=== PATIENT | female | born 1965 | race American Indian/Alaskan Native ===

== ENCOUNTER 2017-01-30 06:34 | Day surgery (SDC) | payer BC ==
[2017-01-29 08:53] VITALS: BMI 34.4
[2017-01-30 07:03] LABS: ADD MANUAL DIFF? NO
[2017-01-30 07:20] LABS: BASO # 0.01 K/mm3 (0.0-2.0); BASO % 0.1 % (0.0-3.0); EOS # 0.1 (0.0-0.7); EOS % 1.1 % (1.5-5.0); GRAN % 65.9 % (50.0-68.0); HEMATOCRIT 36.7 % (36.0-48.0); LYMPH # 2.2 (1.2-3.4); LYMPH % 28.3 % (22.0-35.0); MEAN CELL VOLUME 89.1 fL (80.0-105.0); MEAN CORPUSCULAR HEMOGLOBIN 29.6 pg (25.0-35.0); MEAN CORPUSCULAR HGB CONC 33.2 g/dl (31.0-37.0); MEAN PLATELET VOLUME 10.9 fl (7.0-11.0); MONO # 0.4 (0.1-0.6); MONO % 4.6 % (1.0-6.0); PLATELET COUNT 237 10^3/uL (120.0-450.0); RED CELL DISTRIBUTION WIDTH 14.5 % (11.5-14.5); WHITE BLOOD COUNT 7.6 10^3/ul (4.5-11.0)
[2017-01-30 07:31] LABS: INR 0.94 (0.93-1.08); PARTIAL THROMBOPLASTIN TIME 25.4 Seconds (23.7-30.8)
[2017-01-30 07:34] LABS: BLOOD UREA NITROGEN 12 mg/dL (7-21); CALCIUM 9.4 mg/dL (8.4-10.5); CARBON DIOXIDE 27 mmol/L (21-33); CHLORIDE 108 mmol/L (98-107); CHOLESTEROL 140 mg/dL (130-200); GFR AFRICAN-AMERICAN > 60; GLUCOSE,RANDOM 85 mg/dL (70-110); POTASSIUM 4.1 mmol/L (3.6-5.0); SODIUM 142 mmol/L (132-148)
[2017-01-30] MEDS ORDERED: Lidocaine 2% Inj (20ml) ONE (08:25)
[2017-01-30] MEDS ORDERED: Iodixanol 320 MG/ML 100 ML BOTTLE IV ONE (08:26)
[2017-01-30] MEDS ORDERED: Iodixanol 320 MG/ML 200 ML BOTTLE IV ONE (08:26)
[2017-01-30] MEDS ORDERED: Midazolam 2 MG/2 ML VIAL ONE ×2 (08:56→09:12)
[2017-01-30] MEDS ORDERED: Sodium Chloride 0.9% 1,000 ML IV SCH (09:45)
[2017-01-30 10:10] VITALS: TEMP 98
[2017-01-30 11:14] VITALS: RESP 18
[2017-01-30 16:13] VITALS: BP 120/72; PULSE 57; O2SAT 99
== END 2017-01-30 16:15 | disposition home or self-care (01) ==
LOC: CATH 06:34
PROVIDERS: ATTEND Internal Medicine Cardiovascular Disease
DX: R94.39 Abnormal result of other cardiovascular function study (principal)
CPT/HCPCS: 36415; 80048; 80061; 85025; 85610; 85730; 86850; 86900; 93458; 99152; C2629; J1644; J2250; J3010; J7030; J7040 ×2

== ENCOUNTER 2017-02-01 16:21 | Observation (INO) | payer BC ==
--- NOTE | 2017-02-01 16:49 | ED PDOC ---
Arrival/HPI - General Historian: Patient - History of Present Illness Time/Duration: > month Symptom Onset: Gradual Symptom Course: Worsening Context: Other (Climbing the stair. ) - General Chief Complaint: Shortness Of Breath Time Seen by Provider: 02/01/17 16:28 - History of Present Illness Narrative History of Present Illness (Text): 02/01/17 16:43 Patient is a 51 y/o with pmh of htn, migraine presenting with worsening SOB. Patient states she has SOB for months now. Patient had cardiac cath on Sunday to abnormal stress test last week, and after the stress test her chronic SOB got worst. Patient states since the cardiac cath she has been sedentary, she 's mostly SOB when she tries to climb up stairs, denies waking up in the middle of the night to catch her breath, denies pillow orthopnea. Patient states she was contacted by Dr Lomeli's nurse today, when she told the nurse she's sob, she was told to come to the ED for check up. Patient denies cp, denies n/v/d, denies fever, chills, dizziness or lightheadedness. (Kaley Rasmussen) Past Medical History - Provider Review Nursing Documentation Reviewed: Yes - Travel History Have you recently traveled outside [place] w/in the past 3 mons?: No - Cardiac Hx Pacemaker: No - Pulmonary Hx Bronchitis: Yes - Neurological Hx Paralysis: No - Hematological/Oncological Hx Blood Transfusions: No Hx Blood Transfusion Reaction: No - Musculoskeletal/Rheumatological Hx Musculoskeletal Disorders: No - Psychiatric Hx Emotional Abuse: No Hx Physical Abuse: No Hx Substance Use: No - Surgical History Hx Cardiac Catheterization: Yes (01/20) - Anesthesia Hx Anesthesia Reactions: Yes (VOMITING) Hx Malignant Hyperthermia: No - Suicidal Assessment Feels Threatened In Home Enviroment: No Family/Social History - Physician Review Nursing Documentation Reviewed: Yes Family/Social History: Hypertension Smoking Status: Never Smoked Hx Alcohol Use: No Hx Substance Use: No Allergies/Home Meds Allergies/Adverse Reactions: Allergies acetaminophen [From Percocet] Allergy (Intermediate, Verified 02/01/17 16:33) ITCHING morphine Allergy (Intermediate, Verified 02/01/17 16:33) ITCHING oxycodone HCl [From Percocet] Allergy (Intermediate, Verified 02/01/17 16:33) ITCHING Home Medications: Home Meds Medication Instructions Recorded Confirmed Atorvastatin [Lipitor] 20 mg PO QAM 10/03/16 02/01/17 Ibuprofen [Motrin Ib] 800 mg PO BID PRN 10/03/16 02/01/17 amLODIPine [Norvasc] 5 mg PO QAM 10/03/16 02/01/17 Aspirin [Adult Low Dose Aspirin EC] 81 mg PO QAM 01/29/17 02/01/17 Clopidogrel [Plavix] 75 mg PO QAM 01/29/17 02/01/17 Metoprolol Succinate 50 mg PO QAM 01/29/17 02/01/17 Review of Systems - Review of Systems Constitutional: Normal Eyes: Normal ENT: Normal Respiratory: SOB. absent: Cough, Sputum, Wheezing Cardiovascular: Normal Gastrointestinal: Normal Genitourinary Female: Normal Musculoskeletal: Normal Skin: Normal Neurological: Normal Endocrine: Normal Hemo/Lymphatic: Normal Psychiatric: Normal Physical Exam Vital Signs Reviewed: Yes Temperature: Afebrile Blood Pressure: Normal Pulse: Regular Respiratory Rate: Normal Appearance: Positive for: Well-Appearing, Non-Toxic, Comfortable Pain Distress: None Mental Status: Positive for: Alert and Oriented X 3 - Systems Exam Head: Present: Atraumatic, Normocephalic Conjunctiva: No: Icteric Mouth: Present: Moist Mucous Membranes Neck: Present: Normal Range of Motion Respiratory/Chest: Present: Clear to Auscultation, Good Air Exchange. No: Respiratory Distress, Accessory Muscle Use, Wheezes, Rales, Retracting, Rhonchi , Tachypneic, Tender to Palpation Cardiovascular: Present: Regular Rate and Rhythm, Normal S1, S2. No: Murmurs, Irregular Rhythm, Tachycardic, Bradycardic, Rub Abdomen: Present: Normal Bowel Sounds. No: Tenderness, Distention, Rebound, Guarding Upper Extremity: Present: Normal Inspection. No: Cyanosis, Edema Lower Extremity: Present: Normal Inspection. No: Edema Neurological: Present: GCS=15 Skin: Present: Warm, Dry, Normal Color. No: Rashes Psychiatric: Present: Alert, Oriented x 3, Normal Insight, Normal Concentration Medical Decision Making Re-evaluation Time: 06:50 - EKG Interpretation Interpreted by ED Physician: Yes Type: 12 lead EKG Comparison: Similar to previous EKG (compared to 2014 ekg) ED Course and Treatment: 02/01/17 16:58 Patient is a 51 y/o with pmh of htn, obesity, migraine presenting with worsening SOB s/p cardiac cath on 01/30, with normal results as per patient. Differentials: CHF, Obesity, pulm edema, less likely pneumonia, r/o PE. r/o pneumothorax. Plan: cbc, cmp, bnp, tsh, cardiac iso. chest x-ray, d-dimer, and ekg. and reevaluate. Discussed with Dr Marin. 02/01/17 19:01 All labs are negative, except D-dimer of 0.61, chest x-ray with no infiltration. CT angio ordered and pending final reports. 02/01/17 19:02 Dr Marin spoke to Dr Alvares, whom is covering for Dr Persaud. Dr Lomeli is also paged, pending response. 02/01/17 19:26 CTPE with no PE or aortic dissection. Dr Alvares and Dr Lomeli paged, awaiting response. 02/01/17 19:[address] Alvares, patient to be admitted for tele observation. 02/01/17 19:47 Patient is aware of the admission. (Kaley Rasmussen) EXAM: CT Angiography Chest With Intravenous Contrast FINDINGS: Pulmonary arteries: No filling defects are seen in the pulmonary arteries or in its visualized tributaries. Aorta: The aorta and the great vessels are normal. Negative for dissection. Lungs: Lungs overall clear of consolidation. There is nonspecific patchy parenchymal densities probably related to atelectasis or technique related changes such as motion. Minimal with atelectasis. No focal lung consolidation, pulmonary infiltrates, no cavitary changes are seen. Pleural space: Unremarkable. No significant effusion. No pneumothorax. Heart: The cardiac chambers are moderately enlarged without the presence of pericardial thickening or effusion. No evidence of RV dysfunction. Bones/joints: No acute fracture. No dislocation. Soft tissues: Unremarkable. Lymph nodes: Unremarkable. No enlarged lymph nodes. Gallbladder and bile ducts: There has been a cholecystectomy. IMPRESSION: No PE or dissection. No acute process is present in the chest. There has been a cholecystectomy. Dictated and Authenticated by: Britton London MD 02/01/2017 7:21 PM Eastern Time ([place] & [place]) 02/01/17 20:07 8:07PM Signed out to me from Dr. Radwine as patient with chronic shortness of breath, pending CTA to r/o PE. CTA negative for PE. Vitals are normal. Resident spoke to PMD who recommends tele observation for further evaluation of shortness of breath. (Neha Quesada) - Lab Interpretations Lab Results: 02/01/17 16:55 02/01/17 16:55 Lab Results 02/01/17 18:22: Urine Color Yellow, Urine Appearance Clear, Urine pH 6.0, Ur Specific [place] 1.025, Urine Protein Negative, Urine Glucose (UA) Negative, Urine Ketones Trace H, Urine Blood Negative, Urine Nitrate Negative, Urine Bilirubin Negative, Urine Urobilinogen 1.0 H, Ur Leukocyte Esterase Negative 02/01/17 16:55: TSH 3rd Generation 4.55 02/01/17 16:55: Sodium 139, Potassium 3.9, Chloride 108 H, Carbon Dioxide 26, Anion Gap 9 L, BUN 14, Creatinine 0.9, Est GFR ( Amer) > 60, Est GFR (Non -Af Amer) > 60, Random Glucose 83, Calcium 9.6, Total Bilirubin 0.3, AST 28, ALT 29, Alkaline Phosphatase 137 H, Lactate Dehydrogenase 400, Total Creatine Kinase 136, Troponin I < 0.01, NT-Pro-B Natriuret Pep 61.6, Total Protein 7.1, Albumin 3.9, Globulin 3.2, Albumin/Globulin Ratio 1.2 02/01/17 16:55: PT 10.5, INR 0.97, APTT 26.5, D-Dimer, Quantitative 0.61 H 02/01/17 16:55: WBC 8.2, RBC 3.86, Hgb 11.5 L, Hct 34.3 L, MCV 88.9, MCH 29.8, MCHC 33.5, RDW 14.6 H, Plt Count 221, MPV 10.8, Gran % 64.3, Lymph % (Auto) 29.9 , [place] % (Auto) 5.0, Eos % (Auto) 0.6 L, Baso % (Auto) 0.2, Gran # 5.29, Lymph # 2.5, [place] # 0.4, Eos # 0.1, Baso # 0.02 - RAD Interpretation Radiology Orders: 02/01/17 16:41 CHEST PORTABLE [RAD] Stat 02/01/17 17:43 ANGIO CHEST PE PROTOCOL [CT] Stat - Medication Orders Current Medication Orders: Discontinued Medications Iohexol (Omnipaque 350 100 Ml) Confirm Administered Dose 350 mg .ROUTE .[facility] Stop: 02/01/17 18:27 Disposition/Present on Arrival - Present on Arrival Any Indicators Present on Arrival: No History of DVT/PE: No History of Uncontrolled Diabetes: No Urinary Catheter: No History of Decub. Ulcer: No History Surgical Site Infection Following: None - Disposition Have Diagnosis and Disposition been Completed?: Yes Disposition Time: 19:42 Patient Plan: Observation, Telemetry - Disposition Diagnosis: Dyspnea on exertion Disposition: HOSPITALIZED Patient Problems: Current Active Problems Problem Status Onset Dyspnea on exertion Acute Condition: STABLE Referrals: Fercho Persaud DO [Primary Care Provider] - Follow up with primary
[2017-02-01 17:05] LABS: BASO # 0.02 K/mm3 (0.0-2.0); BASO % 0.2 % (0.0-3.0); EOS # 0.1 (0.0-0.7); EOS % 0.6 % (1.5-5.0); GRAN # 5.29 (1.4-6.5); GRAN % 64.3 % (50.0-68.0); HEMOGLOBIN 11.5 gm/dL (12.0-16.0); LYMPH # 2.5 (1.2-3.4); LYMPH % 29.9 % (22.0-35.0); MEAN CELL VOLUME 88.9 fL (80.0-105.0); MEAN CORPUSCULAR HEMOGLOBIN 29.8 pg (25.0-35.0); MEAN CORPUSCULAR HGB CONC 33.5 g/dl (31.0-37.0); MEAN PLATELET VOLUME 10.8 fl (7.0-11.0); MONO # 0.4 (0.1-0.6); PLATELET COUNT 221 10^3/uL (120.0-450.0); RBC 3.86 10^6/uL (3.5-6.1); RED CELL DISTRIBUTION WIDTH 14.6 % (11.5-14.5); WHITE BLOOD COUNT 8.2 10^3/ul (4.5-11.0)
[2017-02-01 17:31] LABS: INR 0.97 (0.93-1.08); PARTIAL THROMBOPLASTIN TIME 26.5 Seconds (23.7-30.8); PROTHROMBIN TIME 10.5 Seconds (9.9-11.8)
[2017-02-01 17:35] LABS: D DIMER 0.61 mg/L FEU (0-0.50)
[2017-02-01 17:37] LABS: ALB/GLOB RATIO 1.2 (1.1-1.8); ALBUMIN 3.9 g/dL (3.0-4.8); ALT/SGPT 29 U/L (7-56); AST/SGOT 28 U/L (15-39); BLOOD UREA NITROGEN 14 mg/dL (7-21); CALCIUM 9.6 mg/dL (8.4-10.5); GFR AFRICAN-AMERICAN > 60; GFR NON-AFRICAN AMERICAN > 60
[2017-02-01 17:48] LABS: B-TYPE NATRIURETIC PEPTIDE 61.6 pg/mL (0-450)
[2017-02-01 18:04] LABS: TROPONIN I < 0.01 ng/mL
[2017-02-01] MEDS ORDERED: Iohexol 350 MG/100 ML VIAL ONE (18:26)
[2017-02-01 18:33] LABS: URINE APPEARANCE CLEAR (CLEAR); URINE BILIRUBIN NEGATIVE (NEGATIVE); URINE BLOOD NEGATIVE (NEGATIVE); URINE COLOR YELLOW (YELLOW); URINE GLUCOSE (UA) NEGATIVE (NEGATIVE); URINE LEUKOCYTE ESTERASE NEGATIVE Leu/uL (NEGATIVE); URINE NITRATE NEGATIVE (NEGATIVE); URINE PROTEIN NEGATIVE mg/dL (<30 mg/dL)
[2017-02-01 22:27] VITALS: BMI 34.8
[2017-02-02 06:56] VITALS: O2SAT 98
--- NOTE | 2017-02-02 07:45 | CT ---
PROCEDURE: CT Chest with contrast (Pulmonary Angiogram) HISTORY: SOB COMPARISON: None available. TECHNIQUE: Axial computed tomography images were obtained of the chest in the pulmonary arterial phase of enhancement. Coronal and sagittal reformatted images were created and reviewed. Intravenous contrast dose: 100 cc of Omnipaque 350 Radiation dose: Total exam DLP = 824 mGy-cm. This CT exam was performed using one or more of the following dose reduction techniques: Automated exposure control, adjustment of the mA and/or kV according to patient size, and/or use of iterative reconstruction technique. FINDINGS: PULMONARY ARTERIES: Unremarkable. No pulmonary embolism. AORTA: No acute findings. No thoracic aortic aneurysm. LUNGS: Unremarkable. No nodule, mass or pulmonary consolidation. PLEURAL SPACES: Unremarkable. No effusion or pneuomothorax. HEART: Unremarkable. No cardiomegaly. No significant pericardial effusion. LYMPH NODES: No lymphadenopathy. BONES, CHEST WALL: Unremarkable. No fracture or destructive lesion OTHER FINDINGS: Unremarkable. IMPRESSION: Unremarkable CT pulmonary angiogram. No pulmonary embolus.
--- NOTE | 2017-02-02 09:56 | RAD ---
HISTORY: sob COMPARISON: No prior. FINDINGS: LUNGS: No active pulmonary disease. PLEURA: No significant pleural effusion identified, no pneumothorax apparent. CARDIOVASCULAR: Normal. OSSEOUS STRUCTURES: No significant abnormalities. VISUALIZED UPPER ABDOMEN: Normal. OTHER FINDINGS: None. IMPRESSION: No active disease.
--- NOTE | 2017-02-02 10:53 | CP.PCM.CON ---
History of Present Illness - History of Present Illness History of Present Illness: Cariology consult 51 yr old woman with transient SOB, no chest pain PMH hypertension cath recently unremarkable cors No LV No DM SH denies smoking ROS...14 pt ROS....resolution of dyspnea....feels well PE Woman in NAD VSS neck neg JVD lungs clear cor s1s2 ext without c/c/e EKG wnl Labs reviewed CT scan Negative for PE Impressions Transient SOB....now resolved No evidence for ACS hypertension overwight Plan reassured patient discussed cardiac risk reduction program Antonio Lomeli MD Past Patient History - Past Social History Smoking Status: Never Smoked - CARDIAC Hx Hypertension: Yes - PULMONARY Hx Bronchitis: Yes - NEUROLOGICAL Hx Paralysis: No - HEMATOLOGICAL/ONCOLOGICAL Hx Blood Transfusions: No Hx Blood Transfusion Reaction: No - MUSCULOSKELETAL/RHEUMATOLOGICAL Hx Falls: No - PSYCHIATRIC Hx Substance Use: No - SURGICAL HISTORY Hx Cardiac Catheterization: Yes - ANESTHESIA Hx Anesthesia Reactions: Yes (VOMITING) Hx Malignant Hyperthermia: No Meds Allergies/Adverse Reactions: Allergies Allergy/AdvReac Type Severity Reaction Status Date / Time acetaminophen [From Percocet] Allergy Intermediate ITCHING Verified 02/01/17 16: 33 morphine Allergy Intermediate ITCHING Verified 02/01/17 16:33 oxycodone HCl [From Percocet] Allergy Intermediate ITCHING Verified 02/01/17 16: 33 - Medications Medications: Current Medications Aspirin (Ecotrin) 81 mg PO [facility] Last Admin: 02/02/17 09:08 Dose: 81 mg Atorvastatin Calcium (Lipitor) 20 mg PO [facility] Last Admin: 02/02/17 09:08 Dose: 20 mg Clopidogrel Bisulfate (Plavix) 75 mg PO [facility] Last Admin: 02/02/17 09:07 Dose: 75 mg Results - Vital Signs Recent Vital Signs: Last Vital Signs Temp 97.8 F 02/02/17 06:00 Pulse 59 L 02/02/17 06:00 Resp 20 02/02/17 06:00 BP 119/76 02/02/17 06:00 Pulse Ox 98 02/02/17 06:00 - Labs Result Diagrams: 02/01/17 16:55 02/01/17 16:55 Labs: Laboratory Results - last 24 hr 02/02/17 02/02/17 01:30 08:40 Troponin I < 0.01 < 0.01
--- NOTE | 2017-02-02 11:28 | CARD ---
APPROVED REPORT EKG Measurement Heart [id number] HI [id number] <Conclusion> Sinus bradycardia Otherwise normal ECG
[2017-02-02 11:31] VITALS: BP 130/79; PULSE 100; RESP 16; TEMP 97
--- NOTE | 2017-02-03 00:22 | CP.PCM.HP ---
History of Present Illness - History of Present Illness History of Present Illness: I was called to check on Tahmina Joyner this is February 02 for admission she comes in with presented with worsening shortness of breath she has had it for months now Very bad she had a cardiac cath in the past sunday after abnormal stress test and the chronic shortness of breath got worse she has been doing much has been taking it easy she contacted Dr. Lomeli's office and was told to come to the emergency room she had a cardiac cath on January 2017 family history of hypertension she never smoked no alcohol no drugs is a history of bronchitis she has allergy to Percocet she takes Lipitor for high cholesterol Motrin for pain Norvasc for hypertension aspirin Plavix and metoprolol no vision changes no hearing changes she is very short of breath no cough no sputum no chest pain no abdominal pain no back pain no skin issues no dizziness no palpitations no numbness or tingling no anxiety no depression Present on Admission - Present on Admission Any Indicators Present on Admission: Yes History of DVT/PE: No History of Uncontrolled Diabetes: No Urinary Catheter: No Decubitus Ulcer Present: No Review of Systems - Respiratory Respiratory: As Per HPI, Dyspnea on Exertion Additional comments: Shortness of breath Past Patient History - Past Social History Smoking Status: Never Smoked - CARDIAC Hx Hypercholesterolemia: Yes Hx Hypertension: Yes - PULMONARY Hx Bronchitis: Yes - NEUROLOGICAL Hx Paralysis: No - HEMATOLOGICAL/ONCOLOGICAL Hx Blood Transfusions: No Hx Blood Transfusion Reaction: No - MUSCULOSKELETAL/RHEUMATOLOGICAL Hx Falls: No - PSYCHIATRIC Hx Substance Use: No - SURGICAL HISTORY Hx Cardiac Catheterization: Yes - ANESTHESIA Hx Anesthesia Reactions: Yes (VOMITING) Hx Malignant Hyperthermia: No Meds Allergies/Adverse Reactions: Allergies Allergy/AdvReac Type Severity Reaction Status Date / Time acetaminophen [From Percocet] Allergy Intermediate ITCHING Verified 02/01/17 16: 33 morphine Allergy Intermediate ITCHING Verified 02/01/17 16:33 oxycodone HCl [From Percocet] Allergy Intermediate ITCHING Verified 02/01/17 16: 33 Physical Exam - Constitutional Appears: No Acute Distress - Head Exam Head Exam: NORMAL INSPECTION - Eye Exam Eye Exam: EOMI - ENT Exam ENT Exam: Mucous Membranes Moist - Respiratory Exam Respiratory Exam: Clear to Auscultation Bilateral, NORMAL BREATHING PATTERN - Cardiovascular Exam Cardiovascular Exam: REGULAR RHYTHM - GI/Abdominal Exam GI & Abdominal Exam: Normal Bowel Sounds, Soft - Extremities Exam Extremities exam: Positive for: normal inspection - Back Exam Back exam: NORMAL INSPECTION - Psychiatric Exam Psychiatric exam: Normal Mood - Skin Skin Exam: Warm Results - Vital Signs Recent Vital Signs: Last Vital Signs Temp 97 F L 02/02/17 11:31 Pulse 100 H 02/02/17 11:31 Resp 16 02/02/17 11:31 BP 130/79 02/02/17 11:31 Pulse Ox 98 02/02/17 06:00 - Labs Result Diagrams: 02/01/17 16:55 02/01/17 16:55 Labs: Laboratory Results - last 24 hr 02/02/17 02/02/17 01:30 08:40 Troponin I < 0.01 < 0.01 Assessment & Plan - Assessment and Plan (Free Text) Assessment: Shortness of breath Plan: Should be placed in the hospital of oxygen medications of a consult with pulmonary cardiology check her blood tests or x-rays or EKGs or CAT scan CAT scan of the chest was normal went over the labs will make sure not missing anything the patient understands what we are doing Helicobacter later in the day for the further plan Decision To Admit - Pt Status Changed To: Hospital Disposition Of: Observation - . Bed Request Type: Med/Surg
--- NOTE | 2017-02-03 00:23 | CP.PCM.DIS ---
Provider - Provider Date of Admission: 02/01/17 19:47 Attending physician: Jasper Mendoza MD Primary care physician: Fercho Persaud DO Time Spent in preparation of Discharge (in minutes): 15 Hospital Course - Lab Results Lab Results: Most Recent Lab Values WBC 8.2 10^3/ul (4.5-11.0) 02/01/17 16:55 RBC 3.86 10^6/uL (3.5-6.1) 02/01/17 16:55 Hgb 11.5 gm/dL (12.0-16.0) L 02/01/17 16:55 Hct 34.3 % (36.0-48.0) L 02/01/17 16:55 MCV 88.9 fL (80.0-105.0) 02/01/17 16:55 MCH 29.8 pg (25.0-35.0) 02/01/17 16:55 MCHC 33.5 g/dl (31.0-37.0) 02/01/17 16:55 RDW 14.6 % (11.5-14.5) H 02/01/17 16:55 Plt Count 221 10^3/uL (120.0-450.0) 02/01/17 16:55 MPV 10.8 fl (7.0-11.0) 02/01/17 16:55 Gran % 64.3 % (50.0-68.0) 02/01/17 16:55 Lymph % (Auto) 29.9 % (22.0-35.0) 02/01/17 16:55 [place] % (Auto) 5.0 % (1.0-6.0) 02/01/17 16:55 Eos % (Auto) 0.6 % (1.5-5.0) L 02/01/17 16:55 Baso % (Auto) 0.2 % (0.0-3.0) 02/01/17 16:55 Gran # 5.29 (1.4-6.5) 02/01/17 16:55 Lymph # 2.5 (1.2-3.4) 02/01/17 16:55 [place] # 0.4 (0.1-0.6) 02/01/17 16:55 Eos # 0.1 (0.0-0.7) 02/01/17 16:55 Baso # 0.02 K/mm3 (0.0-2.0) 02/01/17 16:55 PT 10.5 Seconds (9.9-11.8) 02/01/17 16:55 INR 0.97 (0.93-1.08) 02/01/17 16:55 APTT 26.5 Seconds (23.7-30.8) 02/01/17 16:55 D-Dimer, Quantitative 0.61 mg/L FEU (0-0.50) H 02/01/17 16:55 Sodium 139 mmol/L (132-148) 02/01/17 16:55 Potassium 3.9 mmol/L (3.6-5.0) 02/01/17 16:55 Chloride 108 mmol/L (98-107) H 02/01/17 16:55 Carbon Dioxide 26 mmol/L (21-33) 02/01/17 16:55 Anion Gap 9 (10-20) L 02/01/17 16:55 BUN 14 mg/dL (7-21) 02/01/17 16:55 Creatinine 0.9 mg/dL (0.5-1.4) 02/01/17 16:55 Est GFR ( Amer) > 60 02/01/17 16:55 Est GFR (Non-Af Amer) > 60 02/01/17 16:55 Random Glucose 83 mg/dL (70-110) 02/01/17 16:55 Calcium 9.6 mg/dL (8.4-10.5) 02/01/17 16:55 Total Bilirubin 0.3 mg/dL (0.2-1.3) 02/01/17 16:55 AST 28 U/L (15-39) 02/01/17 16:55 ALT 29 U/L (7-56) 02/01/17 16:55 Alkaline Phosphatase 137 U/L (38-133) H 02/01/17 16:55 Lactate Dehydrogenase 400 U/L (333-699) 02/01/17 16:55 Total Creatine Kinase 136 U/L (35-230) 02/01/17 16:55 Troponin I < 0.01 ng/mL 02/02/17 08:40 NT-Pro-B Natriuret Pep 61.6 pg/mL (0-450) 02/01/17 16:55 Total Protein 7.1 g/dL (5.8-8.3) 02/01/17 16:55 Albumin 3.9 g/dL (3.0-4.8) 02/01/17 16:55 Globulin 3.2 gm/dL 02/01/17 16:55 Albumin/Globulin Ratio 1.2 (1.1-1.8) 02/01/17 16:55 TSH 3rd Generation 4.55 mIU/mL (0.46-4.68) 02/01/17 16:55 Urine Color Yellow (YELLOW) 02/01/17 18:22 Urine Appearance Clear (CLEAR) 02/01/17 18:22 Urine pH 6.0 (4.7-8.0) 02/01/17 18:22 Ur Specific [place] 1.025 (1.005-1.035) 02/01/17 18:22 Urine Protein Negative mg/dL (<30 mg/dL) 02/01/17 18:22 Urine Glucose (UA) Negative mg/dL (NEGATIVE) 02/01/17 18:22 Urine Ketones Trace mg/dL (NEGATIVE) H 02/01/17 18:22 Urine Blood Negative (NEGATIVE) 02/01/17 18:22 Urine Nitrate Negative (NEGATIVE) 02/01/17 18:22 Urine Bilirubin Negative (NEGATIVE) 02/01/17 18:22 Urine Urobilinogen 1.0 E.U./dL (<1 E.U./dL) H 02/01/17 18:22 Ur Leukocyte Esterase Negative [place]/uL (NEGATIVE) 02/01/17 18:22 - Hospital Course Hospital Course: She came in short of breath she was given medications and multiple tests and CAT scans multiple evaluations from pulmonary and cardiology she had labs x- rays CAT scan she did very well when she felt better and she did well she was able to be discharged home for outpatient follow-up with cardio and pulmonary her medications will be continued and she will be discharged today Discharge Exam - Head Exam Head Exam: NORMAL INSPECTION - Eye Exam Eye Exam: Normal appearance - ENT Exam ENT Exam: Mucous Membranes Moist - Respiratory Exam Respiratory Exam: Clear to PA & Lateral, NORMAL BREATHING PATTERN - GI/Abdominal Exam GI & Abdominal Exam: Normal Bowel Sounds, Soft - Extremities Exam Extremities exam: normal inspection - Psychiatric Exam Psychiatric exam: Normal Affect - Skin Skin Exam: Warm Discharge Plan - Follow Up Plan Condition: STABLE Disposition: HOME/ ROUTINE Instructions: Dyspnea (GEN)
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
== END 2017-02-02 13:46 | disposition home or self-care (01) ==
LOC: ED 16:21 → ERH 19:47 → 2RSO 22:00
PROVIDERS: ADMIT Internal Medicine; ATTEND Internal Medicine
DX: R06.02 Shortness of breath (principal); I10 Essential (primary) hypertension; E78.00 Pure hypercholesterolemia, unspecified; Z79.02 Long term (current) use of antithrombotics/antiplatelets; Z79.82 Long term (current) use of aspirin
CPT/HCPCS: 36415; 71010; 71275; 80053; 81003; 82550; 83615; 83880; 84443; 84484; 85025; 85378; 85610; 85730; 93005; 99285; G0378; Q9967